=== PATIENT | female | born 1970 | race Caucasian/White ===

== ENCOUNTER 2020-05-02 15:36 | Emergency (ER) | payer OTHER ==
[2020-05-02] MEDS ORDERED: Ondansetron PF 4 MG/2 ML Vial ONE (16:16)
[2020-05-02] MEDS ORDERED: Acetaminophen 500 MG TAB ONE ×2 (16:16→16:17)
[2020-05-02 16:21] LABS: Bilirubin Small (Negative); Blood, Urine Trace (Negative); Clarity Clear (Clear); Glucose, Urine (Dipstick) 500 mg/dL (Negative); Ketone, Urine Trace mg/dL (Negative); Leukocyte Negative (Negative); Nitrite Negative (Negative); Protein, Urine (Dipstick) Trace mg/dL (Neg-Trace); Specific Gravity, Urine 1.025 (1.005-1.030)
[2020-05-02 16:26] LABS: #Lymphocytes 1.1 thou/uL (1.20-3.40); #Monocytes 0.5 thou/uL (0.11-0.59); #Neutrophils 5.5 thou/uL (1.40-6.50); %Basophils 0.6 % (0.0-1.0); %Eosinophils 0.5 % (0.0-10.0); %Lymphocytes 14.7 % (21.0-51.0); %Monocytes 6.6 % (0.0-10.0); %Neutrophils 77.6 % (42.0-75.0); Hemoglobin 16.3 g/dL (12.0-16.0); Mean Corpuscular HGB CONC 33.3 g/dL (32.0-36.0); Mean Corpuscular Hemoglobin 27.8 pg (27.0-31.0); Mean Corpuscular Volume 83.4 fL (78.0-98.0); Mean Platelet Volume 10.5 fL (7.4-10.4); Platelet Count 169 thou/uL (130-400); RBC Distribution Width 11.8 % (11.5-14.5); Red Blood Cell (RBC) Count 5.88 mill/uL (4.20-5.40); White Blood Cell (WBC) Count 7.1 thou/uL (4.8-10.8)
[2020-05-02 16:30] LABS: ALT (SGPT) 20 U/L (8-55); AST (SGOT) 16 U/L (5-34); Albumin 3.9 g/dL (3.5-5.0); Alkaline Phosphatase 142 U/L (40-110); Anion Gap 16 mmol/L (10-20); BUN (Urea Nitrogen) 9 mg/dL (7.0-18.7); Bilirubin, Total 1.5 mg/dL (0.2-1.2); CK (CPK) 34 U/L (29-168); Calc. Creatinine Clearance 0 mL/min (70-130); Calcium 9.3 mg/dL (7.8-10.44); Carbon Dioxide 20 mmol/L (22-29); Chloride 98 mmol/L (98-107); Globulin 3.1 g/dL (2.4-3.5); Glucose 380 mg/dL (70-105); Potassium 3.9 mmol/L (3.5-5.1); Sodium 130 mmol/L (136-145)
[2020-05-02 16:32] LABS: Bacteria/HPF Rare-Few HPF (None Seen); RBC/HPF 0-3 HPF (0-3); Transitional Epithelial 0-3 HPF (None Seen); WBC/HPF 0-3 HPF (0-3)
[2020-05-02 16:33] LABS: Epithelial Cast 0-3 LPF (None Seen); White Blood Cell Cast 0-3 LPF (None Seen)
[2020-05-02] MEDS ORDERED: Insulin Regular 300 UNITS/3 ML VIAL ONE ×2 (16:33→22:19)
[2020-05-02] MEDS ORDERED: Piperacillin/Tazobactam 4.5 GM VIAL ONE ×2 (18:35→22:55)
[2020-05-02] MEDS ORDERED: Sodium Chloride 0.9% 100 ML ONE (18:36)
--- NOTE | 2020-05-02 18:42 | RAD ---
PORTABLE CHEST: 05/02/20 An AP portable film at 1608 is presented with no prior comparison. The heart is normal in size and th e vasculature is normal. There is no congestion, edema, or pleural effusion. No focal pulmonary infil trate of concern was found. IMPRESSION: No acute thoracic finding. POS: HOME
[2020-05-02 19:03] LABS: Anion Gap 13 mmol/L (10-20); BUN (Urea Nitrogen) 8 mg/dL (7.0-18.7); Calc. Creatinine Clearance 0 mL/min (70-130); Calcium 8.3 mg/dL (7.8-10.44); Carbon Dioxide 22 mmol/L (22-29); Chloride 102 mmol/L (98-107); Glucose 236 mg/dL (70-105); Potassium 3.8 mmol/L (3.5-5.1); Sodium 133 mmol/L (136-145)
[2020-05-02 20:21] LABS: SARS-CoV-2 NAA Rapid Test Not Detected (NotDetected)
--- NOTE | 2020-05-02 21:48 | CT ---
CT OF THE ABDOMEN AND PELVIS WITH CONTRAST: 05/02/20 The lung bases show some dependent atelectasis but are otherwise clear. No effusions are seen. No focal lesions are seen in the liver. There has been a prior cholecystectomy. The spleen is somewha t generous in size measuring 15 cm in AP length. The pancreas, adrenal glands and kidneys were unrema rkable. The abdominal aorta appears normal. The patient's appendix is slightly wide at 8 mm. There is some equivocal stranding around it, but it is not at all dramatic. In the proper clinical context, appendicitis is a possibility to be at least considered. Fluid filled small bowel is present but there are no loops of dilated small bowel or thi ckened chilel. No free air or free fluid is present. CT of the pelvis showed no additional findings of concern. The patient does have a bulging disc at L5 -S1 and severe spinal stenosis at L4-L5. IMPRESSION: 1. Appendix 8 mm wide with equivocal haziness around it. If the clinical context points this dir ection, then a surgical referral should be considered to r/o appendicitis. 2. Mild splenomegaly (15 cm). 3. Some fluid filled loops of small bowel without dilation. 4. Spinal stenosis, severe at L4-L5. Findings discussed with Dr. Taylor at 1815 on 05/02/20. POS: HOME
[2020-05-02 22:45] LABS: SARS-CoV-2 NAA Rapid Test Not Detected (NotDetected)
[2020-05-03] MEDS ORDERED: Piperacillin/Tazobactam 4.5 GM VIAL ONE (06:04)
[2020-05-03] MEDS ORDERED: Sodium Chloride 0.9% 100 ML ONE (06:04)
[2020-05-03] MEDS ORDERED: Fentanyl 100 MCG/2 ML VIAL ONE (06:17)
== END 2020-05-03 08:22 | disposition short-term general hospital (02) ==
LOC: BURERS 15:36
DX: K35.80 Unspecified acute appendicitis (principal); E11.10 Type 2 diabetes mellitus with ketoacidosis without coma
CPT/HCPCS: 0240U; 0241U; 36415; 36416; 71045; 74177; 80053; 81003; 81015; 82550; 83605; 84484; 85025; 87040; 87086; 93005; 94760; 96365; 96366; 96375; J1815; J2405; J2543; J3010; J3490

== ENCOUNTER 2020-05-10 20:39 | Emergency (ER) | payer OTHER | END 2020-05-10 21:12 | disposition home or self-care (01) | LOC: BURERS 20:39 | DX: E11.65 Type 2 diabetes mellitus with hyperglycemia (principal); R58 Hemorrhage, not elsewhere classified | CPT/HCPCS: 36416; 99284 ==

== ENCOUNTER 2023-11-06 13:44 | Emergency (ER) | payer OTHER ==
[2023-11-06] MEDS ORDERED: Ibuprofen 800 MG TAB ONE (14:00)
[2023-11-06] MEDS ORDERED: Ondansetron ODT 4 MG TAB ONE (14:00)
== END 2023-11-06 14:47 | disposition home or self-care (01) ==
LOC: BURERS 13:44
DX: B34.9 Viral infection, unspecified (principal); E11.9 Type 2 diabetes mellitus without complications
CPT/HCPCS: 87804; 99283; Q0162